=== PATIENT | female | born 1990 | race Caucasian/White ===

== ENCOUNTER 2019-04-28 11:33 | Emergency (ER) | payer SELFPAY ==
[~2019-04-28] VITALS: Ht 177.8 cm; Wt 108.2 kg
[~2019-04-28 11:33] MED LIST: NEIGHBOR PO
[2019-04-28] MEDS ORDERED: PROTONIX TR40 M1 PO (11:47)
[2019-04-28] MEDS ORDERED: PROBIOTIC-DIGE1 EACH PO (11:47)
[2019-04-28 13:06] LABS: ALBUMIN 4.1 g/dL (3.5-5.0); POTASSIUM 4.4 mmol/L (3.5-5.1)
[2019-04-28 13:07] LABS: CALCIUM 9.3 mg/dL (8.3-10.5)
[2019-04-28 13:08] LABS: EOS # 0.5 (0.04-0.40); EOS % 5.4 % (1.0-5.0); HEMATOCRIT 41.6 % (37.0-47.0); HEMOGLOBIN 13.4 g/dL (12.5-16.0); LYMPH# 2.2 (1.50-4.00); MEAN CELL VOLUME 85 fl (78-100); MEAN CORPUSCULAR HEMOGLOBIN 27 pg (27-31); MEAN CORPUSCULAR HGB CONC 32 g/dL (33-37); MEAN PLATELET VOLUME 9.4 fl (7.4-10.4); MONO # 0.9 (0.20-0.80); NEU # 6.2 (1.40-6.50); PLATELET COUNT 377 K/mm3 (130-400); RED BLOOD COUNT 4.92 M/mm3 (4.10-5.30); RED CELL DISTRIBUTION WIDTH 15.8 % (11.5-14.5); TOTAL PROTEIN 7.1 g/dL (6.4-8.3); WHITE BLOOD COUNT 9.9 K/mm3 (4.8-10.8)
[2019-04-28 13:10] LABS: TOTAL BILIRUBIN 0.3 mg/dL (0.2-1.2)
[2019-04-28 13:16] LABS: PH-URINE 6.5 (5.0 - 8.0); URINE APPEARANCE HAZY; URINE BILIRUBIN NEGATIVE (NEGATIVE); URINE BLOOD NEGATIVE (NEGATIVE); URINE COLOR YELLOW; URINE GLUCOSE NEGATIVE (NEGATIVE); URINE KETONE NEGATIVE (NEGATIVE); URINE LEUKOCYTE ESTERASE TRACE (NEGATIVE); URINE NITRATE NEGATIVE (NEGATIVE); URINE PROTEIN(semi-quant) TRACE mg/dL (NEGATIVE); URINE UROBILINOGEN NORMAL (NORMAL)
[2019-04-28] MEDS ORDERED: CARAFATE 1GM1 G PO (14:48)
[2019-04-28 15:06] VITALS: BP 119/77
== END 2019-04-28 15:10 | disposition home or self-care (01) ==
LOC: ED 11:33
PROVIDERS: Nurse Practitioner Family
DX: K29.00 Acute gastritis without bleeding (principal); F17.210 Nicotine dependence, cigarettes, uncomplicated; F12.10 Cannabis abuse, uncomplicated; Z91.040 Latex allergy status
CPT/HCPCS: J2270; J7030; Q9967

== ENCOUNTER 2021-05-30 12:26 | Emergency (ER) | payer SELFPAY ==
[~2021-05-30] VITALS: Ht 177.8 cm; Wt 111.8 kg
[~2021-05-30 12:26] MED LIST changes: +CARAFATE 1GM1 G PO; +PROBIOTIC-DIGE1 EACH PO; +PROTONIX TR40 M1 PO
[2021-05-30 13:33] LABS: BASO # 0.06 (0.02-0.10); EOS # 0.25 (0.04-0.40); EOS % 2.5 % (1.0-5.0); HEMATOCRIT 44.2 % (37.0-47.0); HEMOGLOBIN 14.3 g/dL (12.5-16.0); LYMPH# 2.82 (1.50-4.00); MEAN CELL VOLUME 86 fl (78-100); MEAN CORPUSCULAR HEMOGLOBIN 28 pg (27-31); MEAN CORPUSCULAR HGB CONC 32 g/dL (33-37); MONO # 0.81 (0.20-0.80); PLATELET COUNT 413 K/mm3 (130-400); RED BLOOD COUNT 5.15 M/mm3 (4.10-5.30); RED CELL DISTRIBUTION WIDTH 14.5 % (11.5-14.5); WHITE BLOOD COUNT 9.9 K/mm3 (4.8-10.8)
[2021-05-30 13:37] LABS: ALBUMIN 4.1 g/dL (3.5-5.0)
[2021-05-30 13:38] LABS: POTASSIUM 3.8 mmol/L (3.5-5.1); SODIUM 138 mmol/L (136-145)
[2021-05-30 13:39] LABS: CALCIUM 9.3 mg/dL (8.3-10.5)
[2021-05-30 13:40] LABS: GLUCOSE 118 mg/dL (65-105); TOTAL PROTEIN 7.7 g/dL (6.4-8.3)
[2021-05-30 13:41] LABS: CARBON DIOXIDE 22 mmol/L (22-29)
[2021-05-30 13:42] LABS: TOTAL BILIRUBIN 0.4 mg/dL (0.2-1.2)
[2021-05-30 13:45] LABS: AST-SGOT 22 U/L (5-34)
[2021-05-30 13:46] LABS: ALT/SGPT 35 U/L (0-55)
[2021-05-30 13:47] LABS: LIPASE 23 U/L (8-78)
[2021-05-30 13:56] LABS: TROPONIN-I < 0.03 ng/mL (<0.030)
[2021-05-30 16:00] VITALS: BP 148/90
== END 2021-05-30 16:20 | disposition home or self-care (01) ==
LOC: ED 12:26
PROVIDERS: Nurse Practitioner
DX: M94.0 Chondrocostal junction syndrome [Tietze] (principal); F17.210 Nicotine dependence, cigarettes, uncomplicated; Z20.822 Contact with and (suspected) exposure to COVID-19
CPT/HCPCS: J1885

== ENCOUNTER 2024-10-14 08:16 | Emergency (ER) | payer SELFPAY ==
[~2024-10-14] VITALS: Ht 177.8 cm; Wt 102.4 kg
[2024-10-14] MEDS ORDERED: METFORMIN HYDR750 MG PO (08:43)
[2024-10-14] MEDS ORDERED: WELLBUTRIN SR150 M3 PO (08:44)
[2024-10-14] MEDS ORDERED: OZEMPIC0.25 MG/02 SQ (08:44)
[2024-10-14] MEDS ORDERED: TENEX 1MG TA1 MG/TAB PO (08:55)
[2024-10-14 09:04] LABS: URINE APPEARANCE SLIGHTLY CLOUDY (CLEAR); URINE COLOR RED (YELLOW)
[2024-10-14 09:05] LABS: PH-URINE 6.5 (5.0 - 8.0); URINE BILIRUBIN NEGATIVE (NEGATIVE); URINE BLOOD 3+ (NEGATIVE); URINE GLUCOSE NEGATIVE (NEGATIVE); URINE KETONE NEGATIVE (NEGATIVE); URINE LEUKOCYTE ESTERASE 1+ (NEGATIVE); URINE NITRATE NEGATIVE (NEGATIVE); URINE PROTEIN(semi-quant) 1+ (NEGATIVE)
[2024-10-14 09:06] LABS: URINE MUCUS PRESENT (NOT PRESENT)
[2024-10-14] MEDS ORDERED: BACTRIM DS TAB1 EACH PO (09:15)
[2024-10-14 09:40] VITALS: BP 132/88
== END 2024-10-14 09:44 | disposition home or self-care (01) ==
LOC: ED 08:16
PROVIDERS: Family Medicine
DX: N39.0 Urinary tract infection, site not specified (principal); Z91.040 Latex allergy status
CPT/HCPCS: J0696